=== PATIENT | male | born 2000 | race Caucasian/White ===

== ENCOUNTER 2020-02-04 11:07 | Emergency (ER) | payer BC ==
[2020-02-04 11:14] VITALS: RESP 18; TEMP 98
[2020-02-04] MEDS ORDERED: LORazepam 2 MG/ML INJ IV STA (12:11)
[2020-02-04 12:13] LABS: ALT 15 U/L (4-49); AST 28 U/L (17-59); African American GFR (CKD) >90 (>60 ml/min/1.73 sqM); Albumin 4.8 g/dL (3.5-5.0); Alkaline Phosphatase 71 U/L (38-126); Anion Gap 9 mmol/L; Blood Urea Nitrogen 16 mg/dL (9-20); Calcium 9.8 mg/dL (8.4-10.2); Carbon Dioxide 23 mmol/L (22-30); Chloride 106 mmol/L (98-107); Glucose 81 mg/dL (74-99); Non-African American GFR(CKD) >90 (>60 ml/min/1.73 sqM); Potassium 3.9 mmol/L (3.5-5.1); Sodium 138 mmol/L (137-145); Total Bilirubin 0.5 mg/dL (0.2-1.3); Total Protein 7.6 g/dL (6.3-8.2)
[2020-02-04 12:23] LABS: Basophils % (A) 1 %; Eosinophils # (A) 0.1 k/uL (0-0.7); Eosinophils % (A) 2 %; HCT 45.1 % (39.0-53.0); HGB 14.9 gm/dL (13.0-17.5); Lymphocytes # (A) 1.3 k/uL (1.0-4.8); Lymphocytes % (A) 32 %; MCH 27.3 pg (25.0-35.0); MCV 82.6 fL (80.0-100.0); Mean Platelet Volume 7.2; Monocytes # (A) 0.3 k/uL (0-1.0); Monocytes % (A) 7 %; Neutrophils # (A) 2.4 k/uL (1.3-7.7); Neutrophils % (A) 58 %; Platelet Count 216 k/uL (150-450); RBC 5.46 m/uL (4.30-5.90); RDW 12.5 % (11.5-15.5); WBC 4.1 k/uL (3.8-10.6)
--- NOTE | 2020-02-04 12:30 | XR ---
EXAMINATION TYPE: XR chest 2V DATE OF EXAM: 02/04/2020 CLINICAL HISTORY: Chest pain and shortness of breath for one week TECHNIQUE: Frontal and lateral views of the chest are obtained. COMPARISON: Chest radiograph 06/22/2003 FINDINGS: The cardiomediastinal silhouette is within normal limits for size. Pulmonary vasculature i s normal. There is no focal air space opacity, pleural effusion, or pneumothorax seen. The osseous st ructures are intact. IMPRESSION: No acute cardiopulmonary process.
[2020-02-04 12:32] LABS: D-Dimer <0.17 mg/L FEU (<0.60); Partial Thromboplastin Time 24.4 sec (22.0-30.0); Prothrombin Time 10.8 sec (9.0-12.0)
[2020-02-04 12:44] VITALS: BP 128/75
--- NOTE | 2020-02-04 12:44 | ED ---
Chest Pain HPI - General Chief Complaint: Chest Pain Stated Complaint: chest pain Time Seen by Provider: 02/04/20 11:18 Source: patient Mode of arrival: ambulatory Limitations: no limitations - History of Present Illness Initial Comments: 19-year-old male who denies any significant past medical history presenting today for chief complaint of palpitations chest pain. Patient states he has a discomfort in his entire chest from left to right as well as palpitations, which she describes sensation that his heart is racing on and off for the past 3 days. Patient denies any presyncope syncope he denies any sharp chest pains or pain in the back. Patient states at times he feels like there is a pressure he denies any pressure currently. Patient states that the pressure and palpitations did occur this morning. Patient denies any known cardiac history or family history of cardiac disease. He denies diabetes high blood pressure and denies being a daily smoker. Patient denies any drug use he denies IV drug use fevers or cancer. Patient denies recent surgeries or injuries/immobilization or travels. Denies URI symptoms. States when symptoms are occuring he does experience some SOB. Denies current SOB. Upon arrival patient does appear anxious/shy. .He is not in distress. Admits to being anxious. Remaining ROS (-). HR elevated at 121 on arrival. - Related Data Allergies Allergy/AdvReac Type Severity Reaction Status Date / Time No Known Allergies Allergy Verified 02/04/20 11:10 Review of Systems ROS Statement: Those systems with pertinent positive or pertinent negative responses have been documented in the HPI. ROS Other: All systems not noted in ROS Statement are negative. Past Medical History Past Medical History: No Reported History History of Any Multi-Drug Resistant Organisms: None Reported Past Surgical History: No Surgical Hx Reported Past Psychological History: Anxiety Smoking Status: Never smoker Past Alcohol Use History: None Reported Past Drug Use History: None Reported General Exam - General Exam Comments Initial Comments: General: The patient is awake and alert, in no distress Eye: +3 mm pupils are equal, round and reactive to light, extra-ocular movements are intact. No nystagmus. There is normal conjunctiva bilaterally. No signs of icterus. Ears, nose, mouth and throat: There are moist mucous membranes and no oral lesions. Neck: The neck is supple, there is no tenderness or JVD. Cardiovascular: There is a regular rate and rhythm. No murmur, rub or gallop is appreciated. Respiratory: Lungs are clear to auscultation, respirations are non-labored, breath sounds are equal. No wheezes, stridor, rales, or rhonchi. Gastrointestinal: Soft, non-distended, non-tender abdomen without masses or organomegaly noted. There is no rebound or guarding present. Musculoskeletal: Normal ROM, no tenderness. Strength 5/5. Sensation intact. Radial and DP pulses equal bilaterally 2+. Neurological: A&O x 3. CN II-XII intact grossly, There are no obvious motor or sensory deficits. Coordination appears grossly intact. Speech is normal. Skin: Skin is warm and dry and no rashes or lesions are noted. NO Le edema. no calf pain Psychiatric: Cooperative, appropriate mood & affect, normal judgment. Limitations: no limitations Course Vital Signs 02/04/20 02/04/20 02/04/20 11:10 11:52 12:43 Temperature 98 F Pulse Rate 121 H 104 H 105 H Pulse Rate [ 104 H Floatlight [employer]er ] Respiratory 18 18 18 Rate Blood Pressure 132/74 116/74 128/75 O2 Sat by Pulse 99 99 97 Oximetry 02/04/20 12:55 Temperature Pulse Rate 88 Pulse Rate [ Floatlight Pow[employer] Mixer ] Respiratory Rate Blood Pressure O2 Sat by Pulse Oximetry Chest Pain MDM - MDM 19-year-old male presenting today for chief complaint of palpitations chest discomfort. Denies clotting disorders personally on in family. Heart rate elevated arrival he appears anxious. After Ativan in significant improvement in heart rate. Patient EKG no acute findings, some possible atrial enlargement. No obvious murmur on exam. Patient dimer (-) Troponin (-). Symptoms ongoing x 3-4 days. Patient has no current symptoms. patient CXR WNL. Discussed case wtih > Forrest who is agreeable to discharge with outpatient echocardiogram and PCP f/u. Discussed patient no participating in sports/strenous activity. Patient agreeable to care plan and discharge Ventricular rate 111 bpm, AK interval 134 ms, QR methodist 80 ms, QT/QTC 310/421 ms. This is sinus tachycardia with some more prominent P waves concerning for atrial enlargement. NO ST elevation or depression. Disposition Clinical Impression: Chest discomfort, Palpitation, Anxiety Disposition: HOME SELF-CARE Condition: Good Instructions (If sedation given, give patient instructions): Heart Palpitations (ED) Additional Instructions: Please use medication as discussed. Please follow-up with family doctor in the next 2 days, recommend outpatient echocardiogram. Please return to emergency room if the symptoms increase or worsen or for any other concerns. Is patient prescribed a controlled substance at d/c from ED?: No Referrals: None,Stated [Primary Care Provider] - 1-2 days [facility] [NON-STAFF] - 1-2 days Time of Disposition: 12:59
[2020-02-04 12:55] VITALS: PULSE 88
== END 2020-02-04 13:20 | disposition home or self-care (01) ==
LOC: EC 11:07
DX: F41.9 Anxiety disorder, unspecified (principal); R94.31 Abnormal electrocardiogram [ECG] [EKG]
CPT/HCPCS: 36415; 93005; 85379; 83880; 80053; 83735; 84484; 85025; 85610; 85730; 71046; 99285; 96374; J2060